=== PATIENT | female | born 1965 | race American Indian/Alaskan Native ===

== ENCOUNTER 2016-12-27 10:55 | Emergency (ER) | payer MEDICARE, MEDICAID ==
[2016-12-27 11:06] VITALS: TEMP 98.1
[2016-12-27] MEDS ORDERED: Albuterol-Ipratrop 3 mg / 0.5 (3 ml) UD ONE (11:58)
[2016-12-27] MEDS ORDERED: Albuterol-Ipratrop 3 mg / 0.5 (3 ml) UD IH STA (11:59)
--- NOTE | 2016-12-27 12:03 | ED PDOC ---
Arrival/HPI - General Chief Complaint: Palpitations Time Seen by Provider: 12/27/16 11:14 Historian: Patient - History of Present Illness Narrative History of Present Illness (Text): 12/27/16 11:50 A 51 year old female presents to the emergency department complaining of fever, chills, a productive cough and sinus congestion for the past three days. Patient reports feeling palpations but states has a history of SVT with cardiac ablation and is on Metoprolol. Patient notes 3 days ago her fever was 103. She denies any chest pain, or other complaints at this time. Patient sibling is sick at home. PMD: in [place] Time/Duration: Other (3 days) Symptom Onset: Sudden Symptom Course: Unchanged Quality: Other Activities at Onset: Rest Context: Home Past Medical History - Provider Review Nursing Documentation Reviewed: Yes - Infectious Disease Hx of Infectious Diseases: None - Cardiac Hx Cardiac Disorders: Yes Other/Comment: tachycardia - Pulmonary Hx Respiratory Disorders: Yes Hx Bronchitis: Yes Hx Pneumonia: Yes - Neurological Hx Neurological Disorder: No - HEENT Hx HEENT Disorder: No - Renal Hx Renal Disorder: No - Endocrine/Metabolic Hx Endocrine Disorders: No - Hematological/Oncological Hx Blood Disorders: No - Integumentary Hx Dermatological Disorder: No - Musculoskeletal/Rheumatological Hx Musculoskeletal Disorders: No - Gastrointestinal Hx Gastrointestinal Disorders: No - Genitourinary/Gynecological Hx Genitourinary Disorders: No - Psychiatric Hx Psychophysiologic Disorder: No Hx Substance Use: No - Surgical History Hx Tonsillectomy: Yes Other/Comment: "ablasion of heart" - Anesthesia Hx Anesthesia: Yes Hx Anesthesia Reactions: No Family/Social History - Physician Review Nursing Documentation Reviewed: Yes Family/Social History: Unknown Family HX Smoking Status: Never Smoked Hx Alcohol Use: No Hx Substance Use: No Allergies/Home Meds Allergies/Adverse Reactions: Allergies citalopram Allergy (Verified 12/27/16 11:06) RASH diltiazem [From Cardizem] Allergy (Verified 12/27/16 11:06) RASH morphine Allergy (Verified 12/27/16 11:06) RASH moxifloxacin [From Avelox] Allergy (Verified 12/27/16 11:06) RASH Home Medications: Home Meds Medication Instructions Recorded Confirmed Lisinopril [Zestril] 40 mg PO DAILY 12/27/16 12/27/16 Metoprolol [Lopressor] 100 mg PO BID 12/27/16 12/27/16 Mometasone Furoate [Nasonex] 1 spray IH PRN PRN 12/27/16 12/27/16 amLODIPine [Norvasc] 5 mg PO DAILY 12/27/16 12/27/16 Physical Exam - Physical Exam Narrative Physical Exam (Text): - Review of Systems Constitutional: Fevers. Chills. Normal. absent: Fatigue, Weight Change Eyes: Normal ENT: Sinus congestion. no sore throat. denies tristhmus Respiratory: Cough. Sputum. absent: SOB, Cardiovascular: Palpitations. absent: Chest Pain, Syncope Gastrointestinal: Normal. absent: Abdominal Pain, Diarrhea, Nausea, Vomiting Genitourinary: Normal. absent: Dysuria, Frequency, Hematuria, vaginal bleeding Musculoskeletal: Normal. absent: Arthralgias, Back Pain, Neck Pain Skin: no rashes, no erythema Neurological: absent: Focal Weakness Endocrine: Normal Hemo/Lymphatic: Normal Psychiatric: No suicidal or homicidal ideations - Physical exam Patient appears age appropriate, speaking full sentences without difficulty - Systems Exam Head: Present: Atraumatic, Normocephalic Pupils: Present: PERRL Extraocular Muscles: Present: EOMI Conjunctiva: Present: Normal ENT: Erythematous posterior pharynx, No pain with hyoid manipulation, No muffled voice, no floor of mouth pain or elevation Mouth: Present: Moist Mucous Membranes Neck: Present: Normal Range of Motion. No: MIDLINE TENDERNESS, Paraspinal Tenderness Respiratory/Chest: Present: Good Air Exchange. Expiatory wheeze. No: Respiratory Distress, Accessory Muscle Use, Tachypneic Cardiovascular: Present: Regular Rate and Rhythm, Normal S1, S2, Peripheral Pulses Present. No: Murmurs Abdomen: Present: Normal Bowel Sounds, No: Tenderness, Peritoneal Signs, Rebound, Guarding, Distention Back: Present: Normal Inspection. No: Midline Tenderness, Paraspinal Tenderness Upper Extremity: Present: Normal Inspection. No: Cyanosis, Edema Lower Extremity: Present: Normal Inspection. No: Edema Neurological: Present: GCS=15, Speech Normal, cranial nerves II through XII fully intact with no cerebellar abnormality, neuro-sensory fully intact. No focal neurological deficits. Skin: Present: Warm, Dry, Normal Color. No: Rashes Lymphatic: Present: OX3, NI, NC Psychiatric: Present: Alert, Oriented x 3, Normal Insight, Normal Concentration Vital Signs Reviewed: Yes Vital Signs Temp Pulse Resp BP Pulse Ox 12/27/16 11:06 98.1 F 78 19 123/89 98 Temperature: Afebrile Blood Pressure: Normal Pulse: Regular Respiratory Rate: Normal Appearance: Positive for: Well-Appearing, Non-Toxic, Comfortable Pain Distress: None Mental Status: Positive for: Alert and Oriented X 3 Medical Decision Making ED Course and Treatment: 12/27/16 11:50 Impression: A 51 year old female with a fever, productive cough, sinus congestion and palpitations. Patient has history of SVT and had a cardiac ablation and is on metoprolol. On physical examination patient has expiratory wheezing. Differential Diagnosis include but are not limited to: bronchitis Plan: -- Duoneb and Prednisone -- Reassess and disposition Progress Notes: EKG: Ordered, reviewed, and independently interpreted the EKG. Rate : 71 BPM Rhythm : NSR Interpretation : No ST-segment elevations, normal intervals. Interpreted by me. Comparison : No previous EKG for comparison. 12/27/16 12:56 On reevaluation, the patient states she feels much better. On auscultation, wheezing has significantly improved. 12/27/16 13:27 pt vomited up the prednisone decadron IM ordered states she feels much better abd soft/nt/nd, no peritoneal signs not tachycardic denies cp/sob/tafoya/cough Pt states she understands to return to the ER right away for new or worsening symptoms or for inability to f/u with PMD or specialist as instructed. Patient states that she fully agrees with and understands discharge instructions. States that she agrees with the plan and disposition. Verbalized and repeated discharge instructions and plan. I have given the patient opportunity to ask any additional questions. - Critical Care Critical Care Minutes: 30 minutes - Medication Orders Current Medication Orders: Albuterol/Ipratropium (Duoneb 3 Mg/0.5 Mg (3 Ml) Ud) 3 ml IH Q15M [facility] Stop: 12/27/16 13:31 Discontinued Medications Albuterol/Ipratropium (Duoneb 3 Mg/0.5 Mg (3 Ml) Ud) Confirm Administered Dose 9 ml .ROUTE .STK-MED ONE Stop: 12/27/16 11:59 Last Admin: 12/27/16 12:03 Dose: 9 ml Albuterol/Ipratropium (Duoneb 3 Mg/0.5 Mg (3 Ml) Ud) 3 ml IH STAT STA Stop: 12/27/16 12:00 Last Admin: 12/27/16 13:14 Dose: Dexamethasone (Decadron Inj) 10 mg IM STAT STA Stop: 12/27/16 13:10 Prednisone (Prednisone Tab) 60 mg PO STAT ONE Stop: 12/27/16 12:01 Last Admin: 12/27/16 12:30 Dose: 60 mg - Scribe Statement The provider has reviewed the documentation as recorded by the Sergio Rose Provider Scribe Attestation: All medical record entries made by the Hemalathaibmason were at my direction and personally dictated by me. I have reviewed the chart and agree that the record accurately reflects my personal performance of the history, physical exam, medical decision making, and the department course for this patient. I have also personally directed, reviewed, and agree with the discharge instructions and disposition. Disposition/Present on Arrival - Present on Arrival Any Indicators Present on Arrival: No History of DVT/PE: No History of Uncontrolled Diabetes: No Urinary Catheter: No History of Decub. Ulcer: No History Surgical Site Infection Following: None - Disposition Have Diagnosis and Disposition been Completed?: Yes Diagnosis: Wheezing Disposition: HOME/ ROUTINE Disposition Time: 12:56 Patient Plan: Discharge Patient Problems: Current Active Problems Problem Status Onset Wheezing Acute Condition: GOOD Discharge Instructions (ExitCare): Acute Bronchitis (ED) Additional Instructions: PLEASE RETURN TO THE EMERGENCY DEPARTMENT FOR NEW OR WORSENING SYMPTOMS. RETURN RIGHT AWAY IF YOU CANNOT FOLLOW UP WITH YOUR PRIMARY CARE DOCTOR, CLINIC, OR SPECIALIST IN 1-2 DAYS. Prescriptions: Albuterol HFA [Ventolin HFA 90 mcg/actuation (8 g)] 2 puff IH Q4 #1 puff Azithromycin [Zithromax] 250 mg PO DAILY #1 packet Benzonatate [Tessalon Perle] 100 mg PO Q8 PRN #12 capsule PRN Reason: Cough predniSONE [predniSONE Tab] 60 mg PO DAILY #12 tab Referrals: Lamonte Ramos, [Primary Care Provider] - Follow up with primary Lucía Piper MD [Staff Provider] - Follow up with primary [facility] [Outside] - Follow up with primary
[2016-12-27] MEDS ORDERED: Albuterol-Ipratrop 3 mg / 0.5 (3 ml) UD IH SCH (13:15)
[2016-12-27 14:04] VITALS: BP 141/81; PULSE 94; RESP 18; O2SAT 100
--- NOTE | 2016-12-27 16:44 | CARD ---
APPROVED REPORT EKG Measurement Heart [id number] <Conclusion> Normal sinus rhythm Moderate voltage criteria for LVH, may be normal variant Borderline ECG
== END 2016-12-27 14:05 | disposition home or self-care (01) ==
LOC: ED 10:55
DX: R06.2 Wheezing (principal)
CPT/HCPCS: 93005; 96372; 99284; J1100